=== PATIENT | male | born 1980 | race Caucasian/White ===

== ENCOUNTER 2018-03-02 04:41 | Emergency (ER) | payer OTHER ==
[~2018-03-02] VITALS: Ht 193 cm; Wt 154.5 kg
[2018-03-02 04:47] VITALS: Ht 193 cm; Wt 154.5 kg
[2018-03-02] MEDS ORDERED: NORCO 7.5/325 T1 TA1 PO (05:45)
[2018-03-02] MEDS ORDERED: NAPROSYN500 MG PO (05:45)
[2018-03-02 05:54] VITALS: BP 132/76
== END 2018-03-02 05:54 | disposition home or self-care (01) ==
LOC: D.ER 04:41
DX: M54.5 Low back pain (principal); F17.200 Nicotine dependence, unspecified, uncomplicated